=== PATIENT | female | born 1945 | race Caucasian/White ===

== ENCOUNTER → 2019-01-18 | Outpatient (CLI) | payer MEDICARE, OTHER | LOC: M.ULTRA 07:50 | DX: K76.0 Fatty (change of) liver, not elsewhere classified (principal); Z90.49 Acquired absence of other specified parts of digestive tract ==

== ENCOUNTER → 2021-05-12 | Outpatient (CLI) | payer MEDICARE, OTHER ==
--- NOTE | 2021-05-12 15:54 | 2DMMODE ---
[place] [address] 2 D/M-MODE ECHOCARDIOGRAM Name: DEMETRIUS ELAINE MARCH Room: [facility].#: [id number] Admission: 05/12/21 Attend Phys: Ricardo Haines, Discharge: Date of : 49 Date of Service: 05/12/21 1553 Report #: [id number] THIS REPORT FOR: cc: Jesenia Holcomb MD, Katrina MD Blick,Quincy Mckee MD [facility] ~ APPROVED REPORT Study performed: 05/12/2021 12:53:07 EXAM: Comprehensive 2D, Doppler, and color-flow Echocardiogram Patient Location: Out-Patient BSA: 1.77 HR: 66 bpm BP: 118/78 mmHg Other Information Study Quality: Good Indications Mitral Valve Prolapse 2D Dimensions IVSd: 11.87 (7-11mm) LVOT Diam: 20.53 (18-24mm) LVDd: 35.21 mm PWd: 9.28 (7-11mm) Ascending Ao: 28.01 (22-36mm) LVDs: 19.84 (25-40mm) Aortic Root: 27.99 mm Volumes Left Atrial Volume (Systole) LA ESV Index: 15.00 mL/m2 Aortic Valve AoV Peak Marin.: 1.05 m/s AO Peak Gr.: 4.42 mmHg LVOT Max P.22 mmHg AO Mean Gr.: 2.33 mmHg LVOT Mean P.24 mmHg LVOT Max V: 0.75 m/s AO V2 VTI: 22.84 cm LVOT Mean V: 0.52 m/s SUBHASH (VTI): 3.55 cm2 LVOT V1 VTI: 24.48 cm AI [place]: 1.95 m/s2 AI PHT: 448.06 [place] [address] 2 D/M-MODE ECHOCARDIOGRAM Name: DEMETRIUS ELAINE MARCH Room: [facility]#: [id number] Admission: 05/12/21 Attend Phys: Ricardo Haines, Discharge: Date of : 49 Date of Service: 05/12/21 1553 Report #: [id number] Mitral Valve E/A Ratio: 0.67 MV Decel. Time: 277.64 ms MV E Max Marin.: 0.74 m/s MV PHT: 80.52 ms MVA (PHT): 2.73 cm2 TDI E/Lateral E': 10.57 E/Medial E': 10.57 Medial E' Marin.: 0.07 m/s Lateral E' Marin.: 0.07 m/s Pulmonary Valve PV Peak Marin.: 0.81 m/s PV Peak Gr.: 2.60 mmHg Tricuspid Valve RAP Estimate: 5.00 mmHg TR Peak Gr.: 19.15 mmHg RVSP: 24.15 mmHg PA Pressure: 24.15 mmHg Left Ventricle The left ventricle is normal size. There is normal LV segmental wall motion. There is normal left ventricular wall thickness. Left ventricular systolic function is normal. The left ventricular ejection fraction is within the normal range. LVEF is 55-60%. Grade I - abnormal relaxation pattern. Right Ventricle The right ventricle is normal size. The right ventricular systolic function is normal. Atria The left atrium size is normal. The right atrium size is normal. Aortic Valve The aortic valve is normal in structure. Mild aortic regurgitation. There is no aortic valvular stenosis. Mitral Valve Doming of the anterior mitral valve leaflet is present. Trace mitral regurgitation. No evidence of mitral valve stenosis. There is moderate mitral valve prolapse. Tricuspid Valve The tricuspid valve is normal in structure. [place] [address] 2 D/M-MODE ECHOCARDIOGRAM Name: DEMETRIUS ELAINE MARCH Room: [facility]#: [id number] Admission: 05/12/21 Attend Phys: Ricardo Haines, Discharge: Date of : 49 Date of Service: 05/12/21 1553 Report #: [id number] regurgitation. Pulmonic Valve The pulmonary valve is normal in structure. There is no pulmonic valvular regurgitation. Great Vessels The aortic root is normal in size. IVC is normal in size and collapses >50% with inspiration. Pericardium There is no pericardial effusion. <Conclusion> LVEF is 55-60%. Mild aortic regurgitation. Doming of the anterior mitral valve leaflet is present. Trace mitral regurgitation. Mild tricuspid regurgitation. <ELECTRONICALLY SIGNED> By: Quincy Harrell MD, [facility] 05/12/21 1553 1553 1553 Quincy Harrell MD, FACC /INF
--- NOTE | 2021-05-13 11:12 | CARDNUC ---
[place] [address] CARDIAC NUCLEAR IMAGING REPORT Name: ELAINEDEMETRIUS MARCH Room: [facility].#: [id number] Admission: 05/12/21 Attend Phys: Ricardo Haines, Discharge: Date of : 49 Date of Service: 05/13/21 1112 Report #: [id number] THIS REPORT FOR: cc: Jesenia Holcomb MD, Katrina MD Biggs, F. Douglas MD [facility] ~ APPROVED REPORT Study performed: 05/12/2021 15:09:58 Exam: Nuclear Stress Test Indication: Chest pain, Dyspnea Patient Location: Out-Patient Stress Tech: christina Stress Nurse: Christina Pineda RN NM Tech:NABIL Bishop Ht: 5 ft 3 in Wt: 163 lbs BSA: 1.77 m2 BMI: 28.87 Medical History Medical History: Diabetic Noninsulin, Hyperlipidemia Medications: asa-81, rosuvastatin Allergies: diphenhydramine Cardiac Risk Factors: Age, DM, FHX of CAD, Hyperlipidemia Exercise History: Indeterminate Stress Test Details Stress Test: Pharmacologic stress testing performed using 0.4 mg of regadenoson per 5 mL given IV over 10 seconds. HR Resting HR: 58 bpm Max Heart Rate (APMHR): 147 bpm Max HR Achieved: 102 bpm Target HR (85% APMHR): 124 bpm % of APMHR: 69 Recovery HR: 84 bpm HR response to stress: Normal HR response to stress BP Resting BP: 159/75 mmHg Max BP: 132/61 mmHg BP response to stress: Normal blood pressure [place] [address] CARDIAC NUCLEAR IMAGING REPORT Name: DEMETRIUS ELAINE MARCH Room: [facility]#: [id number] Admission: 05/12/21 Attend Phys: Ricardo Haines, Discharge: Date of : 49 Date of Service: 05/13/21 1112 Report #: [id number] ECG Resting ECG: Sinus Rhythm, normal EKG Stress ECG: Sinus Rhythm, normal EKG ST Change: None Arrhythmia: None Recovery ECG: Sinus Rhythm, normal EKG Recovery ST Change: None Recovery Arrhythmia: None Clinical Reason for Termination: Completed protocol Stress Symptoms: None Nurse Comments pt has failed to reach desired goal in the past Stress ECG Conclusion Clinical: Non-ischemic Non-diagnostic exercise pharmacologic EKG due to failure to attain target HR. NM EXAM: Myocardial Perfusion REST/STRESS Imaging Protocol: Rest Tc-99m/Stress Tc-99m 1 day Resting Data Rest SPECT myocardial perfusion imaging was performed in supine position 30 minutes following the intravenous injection of 10.8 mCi of Tc-99m Sestamibi. Time of rest injection: 1405 Date: 05/12/2021 The images were gated to evaluate regional wall motion and calculate left ventricular ejection fraction. Administration Route: IV Administration Site: Right Hand Pharmacologic Stress Pharmacologic stress test was performed by injecting Regadenoson 0.4 mg IV push followed by the intravenous injection of 35.0 mCi of Tc-99m Sestamibi. Time of stress injection: 1525 Date: 05/12/2021 Administration Route: IV Administration Site: Right Hand Gated Stress SPECT was performed 40 minutes after stress injection. The images were gated to evaluate regional wall motion and calculate left ventricular ejection fraction. Prone [place] [address] CARDIAC NUCLEAR IMAGING REPORT Name: DEMETRIUS ELAINE MARCH [id number] Admission: 05/12/21 Attend Phys: Ricardo Haines, Discharge: Date of : 49 Date of Service: 05/13/21 1112 Report #: [id number] Study Quality Study: Good Artifact: No artifact No artifact Lung Uptake: Normal Study Data At rest, the left ventricular ejection fraction was 74%.. Post stress, the left ventricular ejection was 75%.. SSS: 3 SRS: 3 SDS: 0 TID = 1.00. Perfusion The resting study demonstrated normal and homogeneous uptake of radiopharmaceutical throughout the myocardium. The post stress images were also normal with homogeneous uptake of radiopharmaceutical. Prone images were obtained and were also normal. There were no reversible defects seen. There was no evidence of myocardial ischemia Normal perfusion on both the stress and rest images. Images were reviewed using Infor. Wall Motion Normal left ventricular wall motion. Nuclear Conclusion ECG Findings: non-diagnostic Clinical Findings: negative for ischemia Nuclear Findings: negative for ischemia Exercise Capacity: not assessed Left Ventricular Function: normal Risk Study: low Normal study. No scintigraphic evidence for myocardial ischemia or scar. <Conclusion> Clinical: Non-ischemic Non-diagnostic exercise pharmacologic EKG due to failure to attain target HR. <ELECTRONICALLY SIGNED> By: Cruz Rodriguez MD, FACC 05/13/21 111 111 111 Cruz Rodriguez MD, FACC /INF
== END ==
LOC: M.CRD 04-21 16:24
PROVIDERS: ATTEND Internal Medicine Cardiovascular Disease
DX: I08.3 Combined rheumatic disorders of mitral, aortic and tricuspid valves (principal); R06.00 Dyspnea, unspecified

== ENCOUNTER → 2021-06-09 | Outpatient (CLI) | payer MEDICARE, OTHER | LOC: M.RAD 11:57 | PROVIDERS: ATTEND Nurse Practitioner Family | DX: S39.012A Strain of muscle, fascia and tendon of lower back, initial encounter (principal); I87.8 Other specified disorders of veins; X58.XXXA Exposure to other specified factors, initial encounter; Y93.89 Activity, other specified; Y92.89 Other specified places as the place of occurrence of the external cause; Y99.8 Other external cause status ==

== ENCOUNTER → 2021-07-21 | Outpatient (CLI) | payer MEDICARE, OTHER | LOC: M.RAD 13:28 | PROVIDERS: ATTEND Nurse Practitioner Family | DX: M16.11 Unilateral primary osteoarthritis, right hip (principal); I70.0 Atherosclerosis of aorta; M54.50 Low back pain, unspecified ==